=== PATIENT | female | born 1995 | race Caucasian/White ===

== ENCOUNTER 2022-10-05 17:10 | Observation (INO) | payer OTHER ==
[~2022-10-05 17:10] MED LIST: oxyCODONE HCL 5 MG TABLET PO ONE
[2022-10-05] MEDS ORDERED: BETAMET ACET/BETAMET NA PH 30 MG/5 ML VIAL ONE (18:26)
[2022-10-05 18:29] VITALS: RESP 18
[2022-10-05] MEDS ORDERED: oxyCODONE HCL 5 MG TABLET ONE (18:35)
[2022-10-05 18:54] LABS: BASO % 0.1 % (0-2.0); EOS % 0.5 % (0-4.5); HEMATOCRIT 29.1 % (32.4-45.2); HEMOGLOBIN 9.6 GM/dL (10.7-15.3); LYMPH % 14.4 % (8-40); MCHC 33.1 g/dl (32.0-36.0); MEAN CELL VOLUME 84.5 fl (80-96); MEAN PLT VOLUME 10.8 fl (7.5-11.1); MONO % 4.3 % (3.8-10.2); NEUT % 80.7 % (42.8-82.8); PLATELET COUNT 135 10^3/uL (134-434); RBC 3.44 M/mm3 (3.60-5.2); RDW 13.2 % (11.6-15.6)
[2022-10-05] MEDS ORDERED: BETAMET ACET/BETAMET NA PH 30 MG/5 ML VIAL IM SCH (19:00)
[2022-10-05] MEDS ORDERED: CEPHALEXIN MONOHYDRATE 500 MG CAPSULE (UD) PO SCH ×2 (19:05→22:00)
[2022-10-05 19:16] LABS: CALCIUM 9.1 mg/dL (8.5-10.1)
[2022-10-05 19:17] LABS: ALBUMIN 2.8 g/dl (3.4-5.0)
[2022-10-05 19:20] LABS: CREATININE 0.6 mg/dL (0.55-1.3)
[2022-10-05 19:21] LABS: BILIRUBIN,TOTAL 0.7 mg/dL (0.2-1); TOT PROT 6.3 g/dl (6.4-8.2)
[2022-10-06] MEDS ORDERED: ACETAMINOPHEN 500 MG TABLET (FP) PO ONE (02:30)
[2022-10-06] MEDS ORDERED: oxyCODONE HCL 5 MG TABLET PO PRN (04:57)
[2022-10-06 07:59] VITALS: BMI 30.1
[2022-10-06] MEDS: ACETAMINOPHEN 325 MG TABLET (FP) PO PRN ×2 (08:12→14:07)
[2022-10-06] MEDS: FERROUS SO4 325 MG TABLET (FP) PO SCH ×2 (08:12→18:14)
[2022-10-06] MEDS ORDERED: CEPHALEXIN MONOHYDRATE 500 MG CAPSULE (UD) PO SCH (10:00)
[2022-10-06] MEDS ORDERED: ASCORBIC ACID 500 MG TABLET (FP) PO SCH (10:00)
[2022-10-06 14:43] VITALS: BP 129/81; PULSE 93; TEMP 97.8
== END 2022-10-06 20:10 | disposition home or self-care (01) ==
LOC: JDEL 17:10 → JLDR 17:30 → EDSTATUS 18:01 → J3W 20:24
PROVIDERS: ADMIT Obstetrics & Gynecology Maternal & Fetal Medicine; ATTEND Obstetrics & Gynecology Maternal & Fetal Medicine
PROC: 3E023GC Introduction of Other Therapeutic Substance into Muscle, Percutaneous Approach (ICD-10-PCS; principal; 2022-10-05)
DX: O09.893 Supervision of other high risk pregnancies, third trimester (principal); Z3A.34 34 weeks gestation of pregnancy; K08.89 Other specified disorders of teeth and supporting structures
CPT/HCPCS: 36415; 59025; 80053; 81003; 85025; 86850; 86900; 86901; 96372; C9803-CS; G0378; U0003; U0005

== ENCOUNTER 2022-10-30 10:30 | Inpatient (IN) | payer OTHER ==
[2022-10-30] MEDS: DEXTROSE 5%-LACTATED RINGERS 1,000 ML IV SCH (11:00)
[2022-10-30 11:30] LABS: BASO % 0.3 % (0-2.0); EOS % 0.9 % (0-4.5); HEMATOCRIT 33.3 % (32.4-45.2); HEMOGLOBIN 11.2 GM/dL (10.7-15.3); LYMPH % 17.8 % (8-40); MCHC 33.5 g/dl (32.0-36.0); MEAN CELL VOLUME 83.6 fl (80-96); MEAN PLT VOLUME 11.5 fl (7.5-11.1); MONO % 4.3 % (3.8-10.2); NEUT % 76.7 % (42.8-82.8); PLATELET COUNT 140 10^3/uL (134-434); RBC 3.99 M/mm3 (3.60-5.2); RDW 13.6 % (11.6-15.6); WHITE BLOOD COUNT 9.6 K/mm3 (4.0-10.0)
[2022-10-30 11:31] LABS: INR 1.1 (0.83-1.09); PROTHROMBIN TIME (PATIENT) 12.7 SEC (9.7-13.0)
[2022-10-30 11:34] LABS: ACTIVATED PTT 30.1 SECONDS (25.2-36.5)
[2022-10-30 11:43] LABS: CALCIUM 9.4 mg/dL (8.5-10.1)
[2022-10-30 11:47] LABS: CREATININE 0.7 mg/dL (0.55-1.3)
[2022-10-30 12:52] VITALS: BMI 30.9
[2022-10-30] MEDS ORDERED: CITRIC ACID/SODIUM CITRATE 30 ML UNIT-DOSE CUP ONE (13:05)
[2022-10-30] MEDS ORDERED: FENTANYL CITRATE/PF 50 MCG/ML VIAL ONE (13:07)
[2022-10-30] MEDS ORDERED: morphine SULFATE (PF) 1 MG/2 ML SYRINGE ONE (13:07)
[2022-10-30] MEDS ORDERED: ceFAZolin SODIUM 1 GM VIAL ONE (13:41)
[2022-10-30] MEDS ORDERED: OXYTOCIN 10 UNITS/ML VIAL ONE ×3 (13:41→14:09)
[2022-10-30] MEDS ORDERED: ePHEDrine SULFATE 50 MG/1 ML AMPULE ONE (13:43)
[2022-10-30] MEDS ORDERED: LIDO 2%/EPI 1:200000 PRESRVFRE (20 ML SDVIAL) ONE (13:56)
[2022-10-30] MEDS ORDERED: OXYTOCIN 20 UNITS in 0.9% NS 20 UNIT/1,000 ML INFUS.BAG IV ONE (15:20)
[2022-10-30 15:32] LABS: CORD BASE EXCESS -6.5 mmol/L (0-2); CORD HCO3 21.6 mmHg (20-29); CORD PCO2 52.8 mmHg (30-78); CORD pH 7.23 (7.14-7.44)
[2022-10-30 15:35] LABS: CORD HCO3 20.5 mmHg (20-29); CORD PCO2 74.7 mmHg (30-78); CORD pH 7.057 (7.14-7.44)
[2022-10-30] MEDS ORDERED: morphine SULFATE/PF 1 MG/2 ML (2cc Syringe - QUVA) SPIN ONE (15:47)
[2022-10-30] MEDS ORDERED: ONDANSETRON 4 MG/2 ML VIAL IVPUSH PRN (15:47)
[2022-10-30] MEDS ORDERED: ACETAMINOPHEN 325 MG TABLET (FP) PO PRN (15:47)
[2022-10-30] MEDS ORDERED: CITRIC ACID/SODIUM CITRATE 30 ML UNIT-DOSE CUP PO ONE (15:56)
[2022-10-30 18:28] LABS: HIV INTERPRETATION NEGATIVE (NEGATIVE)
[2022-10-30] MEDS: OXYTOCIN 20 UNITS in 0.9% NS 20 UNIT/1,000 ML INFUS.BAG IV SCH (21:29)
[2022-10-31] MEDS ORDERED: oxyCODONE HCL 5 MG TABLET PO PRN (03:53)
[2022-10-31 09:01] LABS: BASO % 0.2 % (0-2.0); EOS % 0.4 % (0-4.5); HEMATOCRIT 21.5 % (32.4-45.2); HEMOGLOBIN 7.2 GM/dL (10.7-15.3); LYMPH % 17.5 % (8-40); MCH 28.1 pg (25.7-33.7); MCHC 33.6 g/dl (32.0-36.0); MEAN CELL VOLUME 83.7 fl (80-96); MONO % 5.5 % (3.8-10.2); NEUT % 76.4 % (42.8-82.8); PLATELET COUNT 112 10^3/uL (134-434); RBC 2.57 M/mm3 (3.60-5.2); RDW 13.8 % (11.6-15.6); WHITE BLOOD COUNT 11.1 K/mm3 (4.0-10.0)
[2022-10-31] MEDS: FERROUS SO4 325 MG TABLET (FP) PO SCH ×2 (13:51→17:15)
[2022-10-31] MEDS: IBUPROFEN 600 MG TABLET (FP) PO PRN ×2 (13:51→21:43)
[2022-10-31] MEDS: SIMETHICONE 80 MG TAB.CHEW (FP) PO PRN (13:51)
[2022-10-31] MEDS: DOCUSATE SODIUM 100 MG CAPSULE (FP) PO SCH ×2 (13:52→21:39)
[2022-10-31] MEDS: DEXTROSE 5%-LACTATED RINGERS 1,000 ML IV SCH (19:03)
[2022-10-31] MEDS: OXYTOCIN 20 UNITS in 0.9% NS 20 UNIT/1,000 ML INFUS.BAG IV SCH (21:40)
[2022-11-01] MEDS: DOCUSATE SODIUM 100 MG CAPSULE (FP) PO SCH ×3 (06:04→21:11)
[2022-11-01] MEDS: IBUPROFEN 600 MG TABLET (FP) PO PRN ×3 (06:04→20:39)
[2022-11-01] MEDS: FERROUS SO4 325 MG TABLET (FP) PO SCH ×3 (08:25→18:18)
[2022-11-01] MEDS: SIMETHICONE 80 MG TAB.CHEW (FP) PO PRN ×2 (12:30→20:39)
[2022-11-02] MEDS: SIMETHICONE 80 MG TAB.CHEW (FP) PO PRN (04:50)
[2022-11-02] MEDS: DOCUSATE SODIUM 100 MG CAPSULE (FP) PO SCH ×2 (06:03→14:45)
[2022-11-02 08:22] LABS: BASO % 0.3 % (0-2.0); EOS % 3.1 % (0-4.5); HEMATOCRIT 24.4 % (32.4-45.2); HEMOGLOBIN 8.5 GM/dL (10.7-15.3); LYMPH % 24.6 % (8-40); MCH 29.3 pg (25.7-33.7); MCHC 34.8 g/dl (32.0-36.0); MEAN CELL VOLUME 84.1 fl (80-96); MEAN PLT VOLUME 11.3 fl (7.5-11.1); MONO % 4.8 % (3.8-10.2); NEUT % 67.2 % (42.8-82.8); PLATELET COUNT 150 10^3/uL (134-434); RDW 13.6 % (11.6-15.6); WHITE BLOOD COUNT 8.7 K/mm3 (4.0-10.0)
[2022-11-02] MEDS: IBUPROFEN 600 MG TABLET (FP) PO PRN (08:54)
[2022-11-02] MEDS: FERROUS SO4 325 MG TABLET (FP) PO SCH ×2 (08:54→12:43)
[2022-11-02 12:25] VITALS: BP 122/86; PULSE 97; RESP 17; TEMP 97.9
== END 2022-11-02 15:50 | disposition home or self-care (01) | DRG 540 ==
LOC: JLDR 10:30 → J3W 17:42
PROVIDERS: ADMIT Obstetrics & Gynecology Maternal & Fetal Medicine; ATTEND Obstetrics & Gynecology Maternal & Fetal Medicine
PROC: 10D00Z1 Extraction of Products of Conception, Low, Open Approach (ICD-10-PCS; principal; 2022-10-30)
PROC: 0UB70ZZ Excision of Bilateral Fallopian Tubes, Open Approach (ICD-10-PCS; 2022-10-30)
DX: O34.211 Maternal care for low transverse scar from previous cesarean delivery (principal); N85.8 Other specified noninflammatory disorders of uterus; O13.4 Gestational [pregnancy-induced] hypertension without significant proteinuria, complicating childbirth; Z3A.37 37 weeks gestation of pregnancy; Z30.2 Encounter for sterilization; Z37.0 Single live birth
CPT/HCPCS: 36415; 36600; 80048; 82803; 85025; 85610; 85730; 86780; 86850; 86900; 86901; 87389; 88302-TC; 88304-TC; 88307-TC; 94010; C9803-CS; U0003; U0005